=== PATIENT | female | born 1990 | race Caucasian/White ===

== ENCOUNTER 2019-08-05 16:13 | Outpatient (REF) | payer MEDICAID, SELFPAY ==
--- NOTE | 2019-08-05 15:55 | ENDO_PTH ---
PATIENT: Delfina Polk LOC: [facility] U#:[id number] AGE/SX: 28/F ROOM: RE08/05/[address]: Patricia Campbell : 1990 BED: DIS: 08/05/2019 SPEC #: [id number] RECD: 08/05/19 17:16 STATUS: GUERDA RETab #: [id number] HEIDI: 08/05/19 15:[address]: Patricia Campbell DEPT: Surgical Specimen RECD BY: Nikky Ruiz ENTERED: 08/05/19 17:18 SP TYPE: Endo OTHR DR: Isma Vu Tissues: 1 - ENDOCERVICAL BX/CURRETTE 2 - CERVICAL BIOPSY 3 - CERVICAL BIOPSY Procedures: GROSS AND MICRO LEVEL 4 Comments: [id number]
== END 2019-08-05 16:33 ==
LOC: LBN 16:13
PROVIDERS: PCP Naturopath; Visit Provider Obstetrics & Gynecology Gynecology
DX: N87.0 Mild cervical dysplasia (principal); R87.610 Atypical squamous cells of undetermined significance on cytologic smear of cervix (ASC-US)
CPT/HCPCS: 88305

== ENCOUNTER 2020-05-28 12:01 | Outpatient (REF) | payer MEDICAID, SELFPAY ==
--- NOTE | 2020-05-28 11:30 | ENDO_PTH ---
PATIENT: Delfina Polk LOC: [facility] U#:[id number] AGE/SX: 29/F ROOM: RE05/28/[address]: Patricia Campbell : 1990 BED: DIS: 05/28/2020 SPEC #: [id number] RECD: 05/28/20 12:43 STATUS: GUERDA POLK #: [id number] HEIDI: 05/28/20 11:[address]: Patricia Campbell DEPT: Surgical Specimen RECD BY: Nikky Ruiz ENTERED: 05/28/20 12:44 SP TYPE: Endo OTHR DR: Isma Vu Tissues: 1 - ENDOCERVICAL BX/CURRETTE 2 - CERVICAL BIOPSY 3 - CERVICAL BIOPSY Procedures: GROSS AND MICRO LEVEL 4 Comments: [id number]
== END 2020-05-28 12:21 ==
LOC: LBN 12:01
PROVIDERS: PCP Naturopath; Visit Provider Obstetrics & Gynecology Gynecology
DX: N87.1 Moderate cervical dysplasia (principal)
CPT/HCPCS: 88305

== ENCOUNTER 2020-08-10 03:30 | Outpatient (CLI) | payer MEDICAID, SELFPAY ==
[2020-08-10 11:27] LABS: Source Nasal/Nares
[2020-08-10 14:34] LABS: COVID-19 PCR Negative (Negative)
== END 2020-08-10 03:31 | disposition home or self-care (01) ==
LOC: LBO 03:31
PROVIDERS: PCP Naturopath; Visit Provider Obstetrics & Gynecology Gynecology
DX: Z20.822 Contact with and (suspected) exposure to COVID-19 (principal); Z01.818 Encounter for other preprocedural examination
CPT/HCPCS: 87635; U0003

== ENCOUNTER 2020-08-18 10:24 | Outpatient (REF) | payer MEDICAID, SELFPAY ==
--- NOTE | 2020-08-18 09:45 | CER_PTH ---
PATIENT: Delfina Polk LOC: [facility] U#:[id number] AGE/SX: 29/F ROOM: RE08/18/[address]: Patricia Campbell : 1990 BED: DIS: 08/18/2020 SPEC #: [id number] RECD: 08/18/20 12:53 STATUS: GUERDA RETab #: [id number] HEIDI: 08/18/20 09:[address]: Patricia Campbell DEPT: Surgical Specimen RECD BY: Nikky Ruiz ENTERED: 08/18/20 12:53 SP TYPE: JENNI ROWE DR: Isma Vu Tissues: 1 - CERVICAL LEEP/LOOP 2 - CERVICAL LEEP/LOOP Procedures: GROSS AND MICRO LEVEL 5 Comments: [id number]
== END 2020-08-18 10:25 | disposition home or self-care (01) ==
LOC: LBN 10:24
PROVIDERS: PCP Naturopath; Visit Provider Obstetrics & Gynecology Gynecology
DX: N87.1 Moderate cervical dysplasia (principal)
CPT/HCPCS: 88307

== ENCOUNTER 2021-10-25 16:36 | Outpatient (REF) | payer MEDICAID, SELFPAY ==
--- NOTE | 2021-10-25 15:00 | PAPFT_PTH ---
PATIENT: Delfina Polk LOC: [facility] U#:[id number] AGE/SX: 30/F ROOM: RE10/25/[address]: Patricia Campbell : 1990 BED: DIS: 10/25/2021 SPEC #: [id number] RECD: 10/26/21 12:58 STATUS: GUERDA RETab #: [id number] HEIDI: 10/25/21 15:[address]: Patricia Campbell DEPT: [facility] Cytology RECD BY: Nikky Ruiz ENTERED: 10/26/21 12:58 SP TYPE: PAPFT OTHR DR: Isma Vu Tissues: 1 - CX/ENDOCX FOR PAP SMEARS Procedures: PAP THIN PREP/UVM Screening HPV DNA PROBE Comments: [id number]
[2021-10-27 15:05] LABS: Chlamydia Result Negative (Negative); GC Result Negative (Negative)
== END 2021-10-25 16:37 | disposition home or self-care (01) ==
LOC: LBN 16:36
PROVIDERS: PCP Naturopath; Visit Provider Obstetrics & Gynecology Gynecology
DX: Z11.3 Encounter for screening for infections with a predominantly sexual mode of transmission (principal); Z12.4 Encounter for screening for malignant neoplasm of cervix; Z11.51 Encounter for screening for human papillomavirus (HPV)
CPT/HCPCS: 87491; 87591; 88142; 87624

== ENCOUNTER 2022-05-20 16:09 | Outpatient (REF) | payer MEDICAID, SELFPAY | END 2022-05-20 16:10 | disposition home or self-care (01) | LOC: LBN 16:09 | PROVIDERS: PCP Naturopath; Visit Provider Advanced Practice Midwife | DX: N89.8 Other specified noninflammatory disorders of vagina (principal) | CPT/HCPCS: 87480; 87510; 87660 ==

== ENCOUNTER 2022-09-22 14:46 | Outpatient (CLI) | payer MEDICAID, SELFPAY ==
[2022-09-22 15:03] LABS: FREE T4 1.24 ng/dL (0.76-1.46); TSH 1.46 uIU/mL (0.36-3.74)
[2022-09-22 21:57] LABS: T3,Free 4.2 pg/mL (2.8-5.3)
[2022-09-22 22:44] LABS: Thyroglobulin Antibody >500 U/mL (<=60); Thyroperoxidase Antibody >1300 U/mL (<=60)
== END 2022-09-22 14:47 | disposition home or self-care (01) ==
LOC: LBO 14:47
PROVIDERS: PCP Naturopath; Visit Provider Naturopath
DX: E06.3 Autoimmune thyroiditis (principal)
CPT/HCPCS: 36415; 84439; 84443; 84481; 86376; 86800

== ENCOUNTER 2022-12-06 02:45 | Outpatient (CLI) | payer MEDICAID, SELFPAY ==
[2022-12-12 13:37] LABS: Testosterone, Free 0.91 ng/dL (<0.13-1.03); Testosterone, Total 28 ng/dL (8-60)
== END 2022-12-06 02:46 | disposition home or self-care (01) ==
LOC: LBO 02:45
PROVIDERS: PCP Naturopath; Visit Provider Obstetrics & Gynecology Gynecology
DX: L67.8 Other hair color and hair shaft abnormalities (principal); Z67.91 Unspecified blood type, Rh negative
CPT/HCPCS: 36415; 84402; 84403; 86850; 86900; 86901

== ENCOUNTER 2024-04-16 15:04 | Outpatient (CLI) | payer MEDICAID, SELFPAY ==
[2024-04-16 14:44] LABS: TSH (W/Ref FT4) 4.45 uIU/mL (0.36-3.74)
[2024-04-16 15:40] LABS: FREE T4 0.91 ng/dL (0.76-1.46)
[2024-04-16 21:42] LABS: Estradiol 135 pg/mL (See Note); FSH 3.9 mIU/mL (See Note)
[2024-04-17 20:53] LABS: Antimullerian Hormone 4.1 ng/mL (0.15-7.5)
== END 2024-04-16 15:05 | disposition home or self-care (01) ==
LOC: LBO 15:04
PROVIDERS: PCP Naturopath; Visit Provider Obstetrics & Gynecology Gynecology
DX: Z31.9 Encounter for procreative management, unspecified (principal); N97.0 Female infertility associated with anovulation
CPT/HCPCS: 36415; 82670; 83001; 83520; 84439; 84443

== ENCOUNTER 2024-05-20 15:34 | Outpatient (REF) | payer MEDICAID, SELFPAY | END 2024-05-20 15:35 | disposition home or self-care (01) | LOC: LBN 15:34 | PROVIDERS: PCP Naturopath; Visit Provider Nurse Practitioner Women's Health | DX: R30.0 Dysuria (principal) | CPT/HCPCS: 87086 ==

== ENCOUNTER 2024-06-18 03:19 | Outpatient (CLI) | payer MEDICAID, SELFPAY ==
[2024-06-18 14:09] LABS: FREE T4 1.47 ng/dL (0.76-1.46); TSH 0.45 uIU/mL (0.36-3.74)
[2024-06-18 21:45] LABS: T3,Free 3.8 pg/mL (2.8-5.3)
[2024-06-18 22:37] LABS: Thyroglobulin Antibody >500 U/mL (<=60)
[2024-06-18 22:38] LABS: Thyroperoxidase Antibody >1300 U/mL (<=60)
== END 2024-06-18 03:20 | disposition home or self-care (01) ==
LOC: LBO 03:19
PROVIDERS: PCP Naturopath; Visit Provider Naturopath
DX: E06.9 Thyroiditis, unspecified (principal)
CPT/HCPCS: 36415; 84439; 84443; 84481; 86376; 86800

== ENCOUNTER 2024-08-07 03:52 | Outpatient (CLI) | payer MEDICAID, SELFPAY ==
[2024-08-07 17:52] LABS: TSH 1.27 uIU/mL (0.36-3.74)
[2024-08-08 18:15] LABS: T3,Free 3.4 pg/mL (2.8-5.3)
[2024-08-08 18:16] LABS: T4, Free 1.7 ng/dL (0.8-2.2)
[2024-08-08 18:55] LABS: Thyroglobulin Antibody >500 U/mL (<=60); Thyroperoxidase Antibody >1300 U/mL (<=60)
== END 2024-08-07 03:53 | disposition home or self-care (01) ==
LOC: LBO 03:53
PROVIDERS: PCP Naturopath; Visit Provider Naturopath
DX: E06.3 Autoimmune thyroiditis (principal)
CPT/HCPCS: 36415; 84439; 84443; 84481; 86376; 86800

== ENCOUNTER 2024-10-11 19:08 | Outpatient (CLI) | payer MEDICAID, SELFPAY ==
[2024-10-11 18:05] LABS: FREE T4 1.33 ng/dL (0.76-1.46); TSH 3.55 uIU/mL (0.36-3.74)
[2024-10-12 22:18] LABS: T3, Total 122 ng/dL (97-169)
== END 2024-10-11 19:09 | disposition home or self-care (01) ==
LOC: LBO 19:08
PROVIDERS: PCP Naturopath; Visit Provider Obstetrics & Gynecology
DX: E03.9 Hypothyroidism, unspecified (principal)
CPT/HCPCS: 36415; 84439; 84443; 84480

== ENCOUNTER 2024-10-11 20:25 | Outpatient (REF) | payer MEDICAID, SELFPAY | END 2024-10-11 20:26 | disposition home or self-care (01) | LOC: LBN 20:25 | PROVIDERS: PCP Naturopath; Visit Provider Obstetrics & Gynecology | DX: N76.0 Acute vaginitis (principal); E03.9 Hypothyroidism, unspecified | CPT/HCPCS: 87480; 87510; 87660 ==

== ENCOUNTER 2024-11-14 01:01 | Outpatient (CLI) | payer MEDICAID, SELFPAY ==
[2024-11-14 11:28] LABS: Hemoglobin A1C 10.8 % (<5.7)
[2024-11-14 11:37] LABS: TSH (W/Ref FT4) 2.29 uIU/mL (0.36-3.74)
[2024-11-14 22:55] LABS: FSH 3.2 mIU/mL (See Note)
[2024-11-20 12:46] LABS: Estradiol, Mass Spectrometry 130 pg/mL; Estrone 115 pg/mL
[2024-11-26 02:22] LABS: Testosterone, Bioavailable 8.5 ng/dL; Testosterone, Free 1.03 ng/dL (<0.13-1.00); Testosterone, Total 23 ng/dL (8-60)
== END 2024-11-14 01:02 | disposition home or self-care (01) ==
PROVIDERS: PCP Naturopath; Visit Provider Obstetrics & Gynecology
DX: Z31.9 Encounter for procreative management, unspecified (principal)
CPT/HCPCS: 36415; 84402; 84403; 84410; 86850; 82670; 82679; 83001; 83036; 84443

== ENCOUNTER 2024-11-28 01:24 | Outpatient (CLI) | payer MEDICAID, SELFPAY ==
--- NOTE | 2024-11-28 08:00 | DI.US_ITS ---
Exam(s) US PELVIS TRANSVAGINAL EXAM: US PELVIS TRANSVAGINAL CLINICAL HISTORY: Infertility, Z31.69 TECHNIQUE: Transabdominal and transvaginal imaging was performed using standard protocol. COMPARISON: No exams were available for comparison FINDINGS: Transabdominal images are limited by patient body habitus. The bladder is unremarkable. UTERUS: Anteverted. 7.2 x 3.5 x 4.3 cm Endometrium: 5 mm Myometrium: Unremarkable. Cervix: Unremarkable. OVARIES: Right: Cyst or mass: 4.0 x 3.5 x 4.2 centimeter complex cyst. There is debris as well as question of wall thickening versus artifact. Left: Cyst or mass: None. DOPPLER: Color: Symmetric and uniform flow to both ovaries. No hyperemia. CUL-DE-SAC: Free fluid: None. IMPRESSION: 1. Normal-appearing uterus with endometrial stripe within normal limits. 2. 4.2 centimeter complex cyst of the right ovary. An MRI could be considered for further evaluation. Unexpected findings DATA REPOSITORY:
== END 2024-11-28 01:44 ==
LOC: DI 01:24
PROVIDERS: PCP Naturopath; Visit Provider Obstetrics & Gynecology
DX: Z31.69 Encounter for other general counseling and advice on procreation (principal); N83.201 Unspecified ovarian cyst, right side
CPT/HCPCS: 76830; 76856

== ENCOUNTER 2024-12-11 10:01 | Outpatient (CLI) | payer MEDICAID, SELFPAY ==
[2024-12-11 10:49] LABS: Glucose 261 mg/dL (74-106)
== END 2024-12-11 10:02 | disposition home or self-care (01) ==
LOC: LBO 10:01
PROVIDERS: PCP Naturopath; Visit Provider Naturopath
DX: E11.9 Type 2 diabetes mellitus without complications (principal)
CPT/HCPCS: 36415; 82947

== ENCOUNTER 2024-12-17 05:32 | Outpatient (CLI) | payer MEDICAID, SELFPAY ==
--- NOTE | 2024-12-17 12:37 | TELEFU_ITS ---
Date of service: 12/17/24 Time of Service: 11:00 Nutrition Note NOTE: Evelin referred to nutrition visit today after newly dx of diabetes with A1c of 10.8% 11/14/24. Evelin reports being on metformin 500mg BID - no other diabetes meds. She started it and then stopped due to GI issues then started again this last week and reports diarrhea but improving/adjusting to it. She is on levothyroxine for hypothyroid, methylphenidate for ADHD and birch control, which she notes she and her partner do eventually want to conceive but knows she needs to get glucose under control first. She states she goes to PCP office q 2 weeks to check fasting glucose and follow up for A1C in 3 months. She does not currently take any dietary supps. Reports no food allergies. Hx of [employer] school and knows how to cook - reports sometimes not wanting to cook or runs short on time. Has not eaten anything yet today as of our 11am appt. She typically eats 2 meals and 1-2 snacks per day. After DM Dx she immediately started addressing her SSB habit and stopped drinking coke, which was 3-4 bottles most days. I also implored her to avoid fruit juice most of the time except for 4oz at special occasions. We discussed diet changes, weight loss, working on exercise habit, and noting stress mgt and sleep habits that may impede her goal to better manage glucose. We reivewed menu samples for 1800 kcal diet and emphasized biggest priorities are to meet daily protein goal of about 115grams and try to meet this with some plant protein choices as well to help keep kcals down and increase fiber. also made fiber priority of at least 25g per day. And reviewed added sugar and trying to reduce to 20g or less. Showed her menu planning resources. also fitted her with dexcom g7 cgm and made appt early december to print out report and go over trends. Time Spent in Nutritional Counseling and Treatment: 50 min
== END 2024-12-17 05:33 | disposition home or self-care (01) ==
LOC: DS 05:33
PROVIDERS: PCP Naturopath; Visit Provider Dietitian, Registered
DX: E11.9 Type 2 diabetes mellitus without complications (principal)
CPT/HCPCS: 00123; 97802

== ENCOUNTER 2024-12-23 01:26 | Outpatient (CLI) | payer MEDICAID, SELFPAY ==
--- NOTE | 2024-12-23 | DI.MRI_ITS ---
Exam(s) MR PELVIS WO/W EXAM: MR PELVIS WO/W CLINICAL HISTORY: ABNL TRANSVAGINAL US RT OVARY N83.01 US 11/28/24 TECHNIQUE: Multiplanar multisequence MRI of the Abdomen was performed. CONTRAST MATERIAL: IV Contrast: 20 mL of Dotarem contrast administered. COMPARISON: US US PELVIS TRANSVAGINAL from 11/28/2024 FINDINGS: Uterus: The uterus is unremarkable. There is a normal endometrial stripe. No evidence of an intrauterine mass is seen. The cervix in visualized portions of the vagina are unremarkable. Ovaries: The left ovary measures 2.7 AP by 4.1 craniocaudad by 2.3 transverse cm. There are small follicular cysts present. The largest measures 1.0 cm. No suspicious left ovarian lesions are seen. The right ovary measures 4.3 transverse by 6.4 AP by 5.5 craniocaudad cm. There are small follicular cysts present. There is a simple cyst on the right ovary measuring 4.0 transverse by 4.4 AP by 4.3 craniocaudad cm. It has a thin wall. No nodules are seen. There are no septations. It is homogeneously hyperintense on the T2 and homogeneously hypointense on the T1 weighted images. There is a 2nd rounded structure at the posterior aspect of the right ovary which measures 2.9 transverse by 2.8 AP by 3.3 craniocaudad cm. It is hypointense on the T2 weighted images and hyperintense on the T1 weighted images. It remains hyperintense on the fat suppressed T1 weighted images. The wall is thin. No nodule is seen. There are no septations. There is no enhancement of either lesion on the right ovary following contrast administration. Bowel: The bowel is unremarkable. No evidence of obstruction or bowel wall thickening is seen. Peritoneal cavity: No ascites is present. Urinary bladder: The urinary bladder is incompletely distended but grossly unremarkable. Vasculature: Unremarkable. Soft Tissues: Unremarkable. Bone: Unremarkable. Lymph Nodes: Unremarkable. IMPRESSION: 1. 4.0 x 4.4 x 4.3 cm simple right ovarian cyst. 2. 2.9 x 2.8 x 3.3 cm cystic structure on the right ovary. It is hypointense on the T2 weighted images and hyperintense on the T1 weighted images. No nodule, septation or enhancement is seen. Primary diagnostic consideration is for an endometrioma. A cystic neoplastic process cannot be entirely excluded. 3. Unremarkable left ovary. 4. Unremarkable uterus. DATA REPOSITORY:
[2024-12-23] MEDS: Gadoterate meglumine 20 ML SYRINGE IVP (10:37)
[2024-12-23] MEDS: Normal Saline Flush 10 ML SYR IVP (10:37)
== END 2024-12-23 01:46 ==
PROVIDERS: PCP Naturopath; Visit Provider Naturopath
DX: N83.01 Follicular cyst of right ovary (principal)
CPT/HCPCS: 72197

== ENCOUNTER 2024-12-24 10:00 | Outpatient (CLI) | payer MEDICAID, SELFPAY ==
[2024-12-24 10:07] LABS: Glucose 238 mg/dL (74-106)
== END 2024-12-24 10:01 | disposition home or self-care (01) ==
LOC: LBO 10:00
PROVIDERS: PCP Naturopath; Visit Provider Naturopath
DX: E11.9 Type 2 diabetes mellitus without complications (principal)
CPT/HCPCS: 36415; 82947

== ENCOUNTER 2025-01-07 09:54 | Outpatient (CLI) | payer MEDICAID, SELFPAY ==
[2025-01-07 10:50] LABS: Glucose 193 mg/dL (74-106)
== END 2025-01-07 09:55 | disposition home or self-care (01) ==
LOC: LBO 09:55
PROVIDERS: PCP Naturopath; Visit Provider Naturopath
DX: E11.9 Type 2 diabetes mellitus without complications (principal)
CPT/HCPCS: 36415; 82947

== ENCOUNTER 2025-02-10 07:14 | Outpatient (CLI) | payer MEDICAID, SELFPAY ==
--- NOTE | 2025-02-10 07:00 | DI.US_ITS ---
Exam(s) US PELVIS TRANSVAGINAL EXAM: US PELVIS TRANSVAGINAL CLINICAL HISTORY: Recheck right ovarian cyst,n83.201. TECHNIQUE: Transabdominal and transvaginal pelvic ultrasound was performed using standard protocol. COMPARISON: US US PELVIS TRANSVAGINAL from 11/28/2024 MR MR PELVIS WO/W from 12/23/2024 FINDINGS: UTERUS: Position: Anteverted. Size: 8.3 long by 3.2 AP by 4.9 transverse cm Endometrium: 0.5 cm. Normal for patient's menstrual status. Myometrium: Unremarkable. Cervix: Unremarkable. OVARIES: Right: 6.8 x 4.5 x 2.9 cm Cyst or mass: There is again seen a simple cyst on the right ovary. It measures 4.3 x 3.5 x 4.0 cm. This compares to 4.0 x 3.5 x 4.2 cm on the prior examination. There is a complex cystic lesion with low-level echoes also seen in the right ovary. This was present on the prior examination. It measures 3.1 x 2.0 x 3.2 cm. This compares to 3.4 x 2.4 x 2.1 cm. Left: 2.7 x 1.6 x 2.5 cm Cyst or mass: No suspicious cystic or solid masses. DOPPLER: Color: Symmetric and uniform flow to both ovaries. CUL-DE-SAC: Free fluid: None. Other: None. IMPRESSION: 1. Normal-appearing uterus with endometrial stripe within normal limits. 2. Stable simple cyst on the right ovary. 3. Complex cyst is again seen on the right ovary which is relatively stable in size compared to the prior examination. DATA REPOSITORY:
== END 2025-02-10 07:34 ==
PROVIDERS: PCP Naturopath; Visit Provider Obstetrics & Gynecology
DX: N83.201 Unspecified ovarian cyst, right side (principal)
CPT/HCPCS: 76830; 76856

== ENCOUNTER 2025-03-18 10:53 | Outpatient (CLI) | payer MEDICAID, SELFPAY ==
[2025-03-18 17:15] LABS: Hemoglobin A1C 7.7 % (<5.7)
== END 2025-03-18 10:54 | disposition home or self-care (01) ==
LOC: LBO 04-01 10:53
PROVIDERS: PCP Naturopath; Visit Provider Obstetrics & Gynecology
DX: E11.9 Type 2 diabetes mellitus without complications (principal)
CPT/HCPCS: 36415; 83036